=== PATIENT | male | born 1980 | race African-American/Black ===

== ENCOUNTER 2018-02-04 06:16 | Emergency (ER) | payer BC ==
--- NOTE | 2018-02-04 06:34 | ER Report ---
History and Physical Time Seen By MD: 06:25 Hx. 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 He's been driving for 2 days with a dull headache. He's been feeling under a lot of stress. He stopped and checked his blood pressure, dizziness, feeling bad and noted it was elevated to 156/96. Patient states he's never had high blood pressure. He states there is a family history of high blood pressure. He notes no chest pain, no shortness of breath, no diaphoresis, no nausea. Patient denies recent illness, fever, chills or cough. Patient notes no visual changes. REVIEW OF SYSTEMS: Respiratory: No cough, no dyspnea. Cardiovascular: No chest pain, no palpitations. Gastrointestinal: No vomiting, no abdominal pain. Musculoskeletal: No back pain. Allergies: Coded Allergies: No Known Drug Allergies (Unverified , 02/04/18) Home Meds No Active Prescriptions or Reported Meds Reviewed Nurses Notes: Yes Old Medical Records Reviewed: Yes Constitutional Vital Sign - Last 24 Hours 02/04/18 02/04/18 02/04/18 02/04/18 06:20 06:21 06:30 06:45 Temp 98.5 Pulse 83 Resp 18 B/P (MAP) 158/99 (118) 158/99 151/96 (114) 143/92 (109) Pulse Ox 94 O2 Delivery Room Air 02/04/18 06:46 Pulse 81 Pulse Ox 97 Physical Exam General Appearance: The patient is alert, has no immediate need for airway protection and no current signs of toxicity., Blood pressure mildly elevated Eyes: Pupils equal and round no injection. Respiratory: Chest is non tender, lungs are clear to auscultation. No chest wall tenderness Cardiac: regular rate and rhythm, no murmur Gastrointestinal: Abdomen is soft and non tender, no masses, bowel sounds normal. Musculoskeletal: Neck: Neck is supple and non tender. Extremities have full range of motion and are non tender. Skin: No rashes or lesions. DIFFERENTIAL DIAGNOSIS: After history and physical exam differential diagnosis was considered for anxiety, tension, stress, elevated blood pressure Medical Decision Making EKG/Imaging EKG Interpretation 12 lead EK [id number] Rhythm: normal sinus rhythm [place]: normal QRS: normal ST segments: normal ED Course/Re-evaluation ED Course Patient was admitted to an examination room. H&P was done. The differential diagnosis was considered. On clinical examination. Patient has mildly elevated blood pressure. On multiple rechecks over a short duration of 45 minutes. His blood pressure comes down with resting quietly and reassurance. An EKG is performed and shows no evidence of ischemia. Patient's advised to follow-up with his primary care provider back in [place] of his blood pressure rechecked. I do not think he needs medication at this time. Patient appears to be clinically suffering a tension headache. Decision to Disposition Date: February 04, 2018 Decision to Disposition Time: 06:39 Depart Departure Latest Vital Signs Vital Signs Date Time Temp Pulse Resp B/P (MAP) Pulse Ox O2 Delivery O2 Flow Rate FiO2 02/04/18 06:46 81 97 02/04/18 06:45 143/92 (109) 02/04/18 06:21 98.5 18 Room Air Impression: Primary Impression: Tension headache Additional Impression: Elevated blood pressure reading Condition: Improved Disposition: HOME OR SELF-CARE New Scripts No Active Prescriptions or Reported Meds Patient Instructions: Hypertension (ED), Tension Headache (ED) Additional Instructions: Take ibuprofen for headache relief Follow-up with primary care doctor upon returning home to [place] and get her blood pressure rechecked Problem Qualifiers JESUS BREWER DO February 04, 2018 06:34
--- NOTE | 2018-02-04 06:44 | EKG ---
FACILITY: PATIENT NAME: KATHYA LUGO : [id number] MR: [id number] V: [id number] EXAM DATE: ORDERING PHYSICIAN: JESUS BREWER TECHNOLOGIST: DEEPA Test Reason : HTN Blood Pressure : / mmHG Vent. Rate : 078 BPM Atrial Rate : 078 BPM P-R Int : 168 ms QRS Dur : 102 ms QT Int : 366 ms P-R-T Axes : 053 024 034 degrees QTc Int : 417 ms Sinus rhythm Nonspecific ST findings No previous ECGs available Confirmed by RUBEN GENAO ([id number] on 02/04/2018 12:18:54 PM Referred By: RAZIA Confirmed By:RUBEN GENAO
[2018-02-04 06:45] VITALS: BP 143/92
== END 2018-02-04 06:56 | disposition home or self-care (01) ==
LOC: ER 06:25
DX: R51 Headache (principal); R03.0 Elevated blood-pressure reading, without diagnosis of hypertension
CPT/HCPCS: 93005; 99281